=== PATIENT | male | born 1980 | race Caucasian/White ===

== ENCOUNTER 2019-06-18 19:51 | Emergency (ER) | payer SELFPAY ==
[2019-06-18 20:01] VITALS: BP 160/113; PULSE 123
--- NOTE | 2019-06-18 20:05 | EDM.PDOC ---
ED HPI GENERAL MEDICAL PROBLEM - General Chief Complaint: Laceration Stated Complaint: MEDICAL CLEARANCE Time Seen by Provider: 06/18/19 19:58 Source of Information: Reports: Patient History Limitations: Reports: Intoxication, Other (Sarah is refusing any care in spite of obvious laceration above his right eyebrow with blood dripping down the right side of his face. He hit his own head against something that caused the laceration.) - History of Present Illness INITIAL COMMENTS - FREE TEXT/NARRATIVE: 38-year-old male brought to the ED in handcuffs by 3 police officers from [place]. It's unclear the circumstances of his arrest. He states that he injured his own face by striking it on a solid object. He is bleeding from above his right eyebrow. He is refusing care. He appears to be intoxicated by alcohol he is very angry with the police officers. I'm he is refusing all care. Him to cleanse the wound to have a better look at it and clean up his face of bed which he has incentive to at this moment. He is not sure about his tetanus toxoid. He denies being involved in a fight or any other injuries. Otherwise in good health and does not take any medications. Onset: Today Onset Date: 06/18/19 Duration: Minutes: Location: Reports: Face (Laceration right face appears to be above his right medial eyebrow.) Quality: Reports: Ache, Throbbing Severity: Moderate Improves with: Reports: None Worsens with: Reports: None Context: Reports: Trauma (He reports self-inflicted trauma by banging his head on a solid object.). Denies: Activity, Exercise, Lifting, Sick Contact Associated Symptoms: Reports: No Other Symptoms Treatments [employer] M[employer] HE[employer] SOCIAL WORKER: Reports: Other (see below) (None.) - Related Data Allergies Allergy/AdvReac Type Severity Reaction Status Date / Time No Known Allergies Allergy Verified 06/18/19 20:01 Home Meds: Home Meds . [No Known Home Meds] 03/08/15 [History] Past Medical History - Past Health History Medical/Surgical History: Denies Medical/Surgical History Social & Family History - Living Situation & Occupation Living situation: Reports: ED ROS GENERAL - Review of Systems Review Of Systems: Unable To Obtain Reason Not Obtained: Patient refused to cooperate and provide any useful history. He j ED EXAM, SKIN/RASH Exam: See Below Exam Limited By: Intoxication ( is very uncooperative and very unhappy with police officers. HCV banged his head again something and suffered a laceration above his right eyebrow out of frustration. Refuses care or treatment at this time.) General Appearance: Severe Distress (Very agitated and anxious and angry with police officers. He remains handcuffed behind his back.) Eye Exam: Bilateral Eye: Normal Inspection, PERRL Throat/Mouth: Normal Inspection, Normal Lips, Normal Oropharynx Head: Other (He had a gaping 2.5 cm laceration just superior to his right eyebrow and slightly medial. He did allow the nurses to clean this wound up and I did offer him suture repair but he can climb. He did allow the nurse to apply Steri-Strips to close the wound.) Neck: Normal Inspection, Supple, Non-Tender, Full Range of Motion Extremities: Normal Inspection (No evidence of fight injuries to his hands.) Course - Vital Signs Last Recorded V/S: Last Vital Signs Temp Pulse 123 H 06/18/19 19:56 Resp 18 06/18/19 19:56 BP 160/113 H 06/18/19 19:56 Pulse Ox 98 06/18/19 19:56 - Radiology Interpretation Free Text/Narrative:: 38-year-old male brought to the ED by 3 police officers. Patient is under arrest at this time for unknown reason. He is very agitated and angry with police officers present. He states that he did bang his own head against something and suffered a laceration above his right eyebrow. Initially he refused all treatment. He states he was here against his will. I was able to talk him into along the nurse to clean up his wound which was done. He has a 2.5 cm gaping laceration above his right eyebrow and slightly medial to the eyebrow. He was advised that suture repair is indicated. He elected not to pursue this avenue of treatment and but did allow the nurse to Steri-Strip the wound closed. He refused tetanus toxoid update. Patient was discharged into police records clerk care. No other emergency condition exists at this time he is cleared for mission to the local [place] of [place]. Departure - Departure Time of Disposition: 20:22 Disposition: DC/Tfer to Court of Law En 21 Condition: Fair Clinical Impression: Facial laceration Qualifiers: Encounter type: initial encounter Qualified Code(s): S01.81XA - Laceration without foreign body of other part of head, initial encounter - Discharge Information *PRESCRIPTION DRUG MONITORING PROGRAM REVIEWED*: Not Applicable *COPY OF PRESCRIPTION DRUG MONITORING REPORT IN PATIENT LADONNA: Not Applicable Instructions: Sterile Tape Wound Care, Laceration Care, Adult, Facial Laceration, [id number] Referrals: PCP,None [Primary Care Provider] - Forms: ED Department Discharge Additional Instructions: Evaluation in the emergency room at the request of [place] police officers for medical clearance examination. As that you have self injured herself causing a 2.5 cm laceration above your right eyebrow. Consent to active treatment with sutures. The wound was therefore closed after cleansing with Steri-Strips. At this time no other treatment is required. I would advise leaving the Steri-Strips in place until a follow-up on their own over the next week to 7 days. The wound will usually be healed fairly well in 7 days time. Medical care if any signs of infection occur such as increased redness, swelling or obvious pus. No other emergency medical condition was identified and therefore you're released into police custody. Sepsis Event Note - Focused Exam Vital Signs: Vital Signs Pulse Resp BP Pulse Ox 06/18/19 19:56 123 H 18 160/113 H 98 Date Exam was Performed: 06/18/19 Time Exam was Performed: 20:34
== END 2019-06-18 20:18 ==
LOC: JD.ED 19:51
DX: S01.111A Laceration without foreign body of right eyelid and periocular area, initial encounter (principal); W22.8XXA Striking against or struck by other objects, initial encounter
CPT/HCPCS: 99282; 99283